=== PATIENT | male | born 1945 | race Hispanic/Latino ===

== ENCOUNTER → 2020-10-16 | Outpatient (CLI) | payer OTHER | END | disposition home or self-care (01) | LOC: RAH 13:16 | PROVIDERS: ATTEND Family Medicine | DX: N64.4 Mastodynia (principal) | CPT/HCPCS: 76641 ==

== ENCOUNTER 2020-12-23 09:33 | Day surgery (SDC) | payer OTHER ==
[2020-12-17 14:39] LABS: HEMATOCRIT 36.3 % (42-54); LYMPHOCYTES % (AUTO) 28.3 % (21.0-51.0); MEAN CORPUSCULAR HEMOGLOBIN 30.4 pg (27.0-33.0); MEAN CORPUSCULAR HGB CONC 32.8 g/dL (32.0-36.0); MEAN CORPUSCULAR VOLUME 92.8 fL (79-99); MONOCYTES % (AUTO) 7.7 % (3.0-13.0); NEUTROPHILS % (AUTO) 54.5 % (40.0-77.0); PLATELET COUNT (AUTO) 187 K/uL (130-400); RED BLOOD CELL COUNT(AUTO) 3.91 MIL/uL (4.50-6.20); RED CELL DISTRIBUTION WIDTH 14.3 % (11.0-15.5); WHITE BLOOD COUNT (AUTO) 8.1 K/uL (4.8-10.8)
[2020-12-17 14:48] LABS: INR 1.01 (0.85-1.15)
[2020-12-17 14:50] LABS: PARTIAL THROMBOPLASTIN TIME 24.3 SEC (26.3-35.5)
[2020-12-17 15:17] LABS: ALBUMIN 3.8 g/dL (3.5-5.0); BILIRUBIN,TOTAL 0.4 mg/dL (0.2-1.0); CREATININE 6.7 mg/dL (0.5-1.5); POTASSIUM 4.2 mmol/L (3.5-5.1); TOTAL PROTEIN, SERUM 7.9 g/dL (6.0-8.3)
[2020-12-22 13:15] VITALS: BP 119/64
[~2020-12-23] VITALS: Ht 165.1 cm; Wt 75.3 kg
[~2020-12-23 09:33] MED LIST: CEFAZOLIN SODIUM 1 GM VIAL IVP ONE
== END 2020-12-23 11:30 | disposition home or self-care (01) ==
LOC: DAH 09:33
PROVIDERS: ATTEND Student in an Organized Health Care Education/Training Program
DX: E11.22 Type 2 diabetes mellitus with diabetic chronic kidney disease (principal); Z20.822 Contact with and (suspected) exposure to COVID-19; I13.11 Hypertensive heart and chronic kidney disease without heart failure, with stage 5 chronic kidney disease, or end stage renal disease; J44.9 Chronic obstructive pulmonary disease, unspecified; N18.6 End stage renal disease; Z53.8 Procedure and treatment not carried out for other reasons; Z99.2 Dependence on renal dialysis; Z98.890 Other specified postprocedural states; Z87.891 Personal history of nicotine dependence; Z79.899 Other long term (current) drug therapy
CPT/HCPCS: 36415 ×2; 71045; 80053; 82948; 84132; 85025; 85610; 85730; 86850 ×2; 86900 ×2; 86901 ×2; 87635; 93005; A4215; A4221; A4222; A4223; A4510; A4663; C9803

== ENCOUNTER 2021-01-11 06:41 | Day surgery (SDC) | payer OTHER ==
[2021-01-08 12:17] LABS: EOSINOPHILS % (AUTO) 9.4 % (0.0-8.0); HEMATOCRIT 36.9 % (42-54); LYMPHOCYTES % (AUTO) 23.1 % (21.0-51.0); MEAN CORPUSCULAR HEMOGLOBIN 30.5 pg (27.0-33.0); MEAN CORPUSCULAR HGB CONC 32.2 g/dL (32.0-36.0); MEAN CORPUSCULAR VOLUME 94.6 fL (79-99); MONOCYTES % (AUTO) 8.2 % (3.0-13.0); NEUTROPHILS % (AUTO) 57.3 % (40.0-77.0); PLATELET COUNT (AUTO) 202 K/uL (130-400); RED CELL DISTRIBUTION WIDTH 15.5 % (11.0-15.5); WHITE BLOOD COUNT (AUTO) 6.8 K/uL (4.8-10.8)
[2021-01-08 12:29] LABS: INR 1.01 (0.85-1.15)
[2021-01-08 12:30] LABS: PARTIAL THROMBOPLASTIN TIME 23.7 SEC (26.3-35.5)
[2021-01-08 12:33] LABS: ALBUMIN 3.8 g/dL (3.5-5.0); BILIRUBIN,TOTAL 0.6 mg/dL (0.2-1.0); CREATININE 4.3 mg/dL (0.5-1.5); POTASSIUM 4.7 mmol/L (3.5-5.1); TOTAL PROTEIN, SERUM 8.2 g/dL (6.0-8.3)
[2021-01-08 14:47] VITALS: BP 128/72
[~2021-01-11] VITALS: Ht 162.6 cm; Wt 75.7 kg
[2021-01-11] VITALS (14 sets, daily range): BP systolic 123–141; BP diastolic 57–81
[2021-01-11] MEDS ORDERED: 0.9% NACL 500ML IV.SOLN 500 ML IV ONE (07:14)
[2021-01-11] MEDS: CEFAZOLIN SODIUM 1 GM VIAL ONE ×2 (07:22→08:25)
[2021-01-11] MEDS ORDERED: MIDAZOLAM HCL 1 MG/ML 2ML VIAL ONE (07:28)
[2021-01-11] MEDS ORDERED: FENTANYL CITRATE PF 50 MCG/1 ML 2ML VIAL ONE (07:28)
[2021-01-11 08:22] LABS: POTASSIUM 5.2 mmol/L (3.5-5.1)
[2021-01-11 08:31] LABS: CREATININE 9.9 mg/dL (0.5-1.5)
[2021-01-11] MEDS ORDERED: CEFAZOLIN SODIUM 1 GM VIAL ONE ×2 (08:50→08:53)
[2021-01-11] MEDS ORDERED: HEPARIN 10,000 UNIT/10ML (1,000 UNIT/ML) VIAL ONE ×2 (09:03→09:05)
[2021-01-11] MEDS ORDERED: EPINEPHRINE PF 1MG AMP ONE (09:27)
[2021-01-11] MEDS ORDERED: EPHEDRINE SULFATE 50 MG/ML AMPULE ONE (09:28)
[2021-01-11] MEDS ORDERED: PROPOFOL 10 MG/ML 20ML VIAL IV ONE (09:39)
== END 2021-01-11 11:30 | disposition home or self-care (01) ==
LOC: DAH 06:41
PROVIDERS: ATTEND Student in an Organized Health Care Education/Training Program
DX: N18.6 End stage renal disease (principal); Z20.822 Contact with and (suspected) exposure to COVID-19; E11.22 Type 2 diabetes mellitus with diabetic chronic kidney disease; I13.11 Hypertensive heart and chronic kidney disease without heart failure, with stage 5 chronic kidney disease, or end stage renal disease; I25.10 Atherosclerotic heart disease of native coronary artery without angina pectoris; J44.9 Chronic obstructive pulmonary disease, unspecified; I48.20 Chronic atrial fibrillation, unspecified; Z79.4 Long term (current) use of insulin; Z79.01 Long term (current) use of anticoagulants; Z87.891 Personal history of nicotine dependence; Z79.899 Other long term (current) drug therapy; Z98.890 Other specified postprocedural states; Z99.2 Dependence on renal dialysis
CPT/HCPCS: 36415 ×2; 36830; 71045; 80048; 80053; 82948 ×2; 85025; 85610; 85730; 86850 ×2; 86900 ×2; 86901 ×2; 87635; 93005; A4215; A4221; A4222; A4223; A4649; A4663; A6207; A6260; C9803; G0168; J0171; J0690 ×3; J1644 ×3; J2250; J2704; J3010; J3490; J7040

== ENCOUNTER → 2021-03-23 | Outpatient (CLI) | payer OTHER | END | disposition home or self-care (01) | LOC: SHCH 10:57 | PROVIDERS: ATTEND Internal Medicine Cardiovascular Disease | DX: I08.1 Rheumatic disorders of both mitral and tricuspid valves (principal); I10 Essential (primary) hypertension; E78.5 Hyperlipidemia, unspecified | CPT/HCPCS: 93306; 93356 ==

== ENCOUNTER 2021-07-12 22:56 | Observation (INO) | payer OTHER ==
[~2021-07-12] VITALS: Ht 162.6 cm; Wt 60.8 kg
[2021-07-12 23:26] LABS: BASOPHILS % (AUTO) 1.2 % (0.0-5.0); EOSINOPHILS % (AUTO) 9.8 % (0.0-8.0); HEMATOCRIT 31.3 % (42-54); LYMPHOCYTES % (AUTO) 30.2 % (21.0-51.0); MEAN CORPUSCULAR HEMOGLOBIN 30.7 pg (27.0-33.0); MEAN CORPUSCULAR HGB CONC 31.6 g/dL (32.0-36.0); MEAN CORPUSCULAR VOLUME 96.9 fL (79-99); MONOCYTES % (AUTO) 9.7 % (3.0-13.0); NEUTROPHILS % (AUTO) 48.7 % (40.0-77.0); PLATELET COUNT (AUTO) 164 K/uL (130-400); RED BLOOD CELL COUNT(AUTO) 3.23 MIL/uL (4.50-6.20); RED CELL DISTRIBUTION WIDTH 13.4 % (11.0-15.5); WHITE BLOOD COUNT (AUTO) 6.9 K/uL (4.8-10.8)
[2021-07-12 23:33] LABS: POTASSIUM 3.7 mmol/L (3.5-5.1)
[2021-07-12 23:52] LABS: CREATININE 5.3 mg/dL (0.5-1.5)
[2021-07-12 23:57] LABS: ALBUMIN 4.1 g/dL (3.5-5.0); BILIRUBIN,TOTAL 0.6 mg/dL (0.2-1.0); TOTAL PROTEIN, SERUM 7.3 g/dL (6.0-8.3)
[2021-07-13] MEDS ORDERED: ONDANSETRON 4MG INJ IVP ONE (03:30)
[2021-07-13] MEDS ORDERED: ASPIRIN 325MG TAB PO ONE (03:30)
[2021-07-13] MEDS ORDERED: CEFTRIAXONE 1G VIAL IVP ONE (07:00)
[2021-07-13] MEDS: AZITHROMYCIN 500MG+NS 250ML IVPB SCH (07:03)
[2021-07-13] MEDS ORDERED: VANCOMYCIN PROTOCOL PER PHARMACY IV SCH (07:30)
[2021-07-13] MEDS: INSULIN HUMULIN R 100 UNIT/ML 3ML SQ SCH ×4 (07:30→20:08)
[2021-07-13] MEDS ORDERED: GLUCAGON 1MG KIT 1 MG ML IM PRN (07:30)
[2021-07-13] MEDS ORDERED: ONDANSETRON 4MG INJ IVP PRN (07:30)
[2021-07-13] MEDS ORDERED: DEXTROSE 50%-WATER 50 ML DISP.SYRIN IV PRN (07:30)
[2021-07-13 08:04] LABS: BASOPHILS % (AUTO) 1.3 % (0.0-5.0); EOSINOPHILS % (AUTO) 10.2 % (0.0-8.0); HEMATOCRIT 29.2 % (42-54); LYMPHOCYTES % (AUTO) 26.3 % (21.0-51.0); MEAN CORPUSCULAR HGB CONC 33.2 g/dL (32.0-36.0); MEAN CORPUSCULAR VOLUME 96.4 fL (79-99); MONOCYTES % (AUTO) 9.9 % (3.0-13.0); PLATELET COUNT (AUTO) 169 K/uL (130-400); RED BLOOD CELL COUNT(AUTO) 3.03 MIL/uL (4.50-6.20); RED CELL DISTRIBUTION WIDTH 13.6 % (11.0-15.5); WHITE BLOOD COUNT (AUTO) 6.1 K/uL (4.8-10.8)
[2021-07-13 08:20] LABS: ALBUMIN 3.6 g/dL (3.5-5.0); CREATININE 5.3 mg/dL (0.5-1.5); PHOSPHORUS 5.6 mg/dL (2.5-4.9); POTASSIUM 3.9 mmol/L (3.5-5.1)
[2021-07-13 08:22] LABS: BILIRUBIN,TOTAL 0.6 mg/dL (0.2-1.0); MAGNESIUM 2.7 mg/dL (1.80-2.40); TOTAL PROTEIN, SERUM 7.2 g/dL (6.0-8.3)
[2021-07-13 08:34] LABS: HEMOGLOBIN A1C 6.7 % (4.0-6.0)
[2021-07-13] MEDS ORDERED: 0.9% NACL 250ML 250 ML ONE (09:51)
[2021-07-13] MEDS: VANCOMYCIN 1G/250ML KIT 250 ML IV SCH (10:00)
[2021-07-13] MEDS ORDERED: BACL10TA PO (10:16)
[2021-07-13] MEDS ORDERED: METO50TA18 PO (10:16)
[2021-07-13] MEDS ORDERED: ROSU10TA28 PO (10:16)
[2021-07-13] MEDS ORDERED: GLIP10TA9 PO (10:16)
[2021-07-13] MEDS ORDERED: APIX2.5T PO (10:16)
[2021-07-13] MEDS ORDERED: DOXA2TAB2 PO (10:21)
[2021-07-13] MEDS ORDERED: CHLO25TA23 PO (10:21)
[2021-07-13 10:44] VITALS: BP 163/73
[2021-07-13] MEDS ORDERED: INSLAN SQ (11:00)
[2021-07-13] MEDS: CEFEPIME HCL 1 GM VIAL IVP SCH (12:30)
[2021-07-13 14:55] VITALS: BP 157/66
[2021-07-13 16:05] VITALS: BP 147/48
[2021-07-13] MEDS: APIXABAN 2.5 MG TABLET PO SCH (20:07)
[2021-07-13] MEDS: METOPROLOL TARTRATE 50 MG TAB PO SCH (20:07)
[2021-07-13 20:20] VITALS: BP 144/49
[2021-07-14] VITALS (20 sets, daily range): BP systolic 120–208; BP diastolic 57–86
[2021-07-14] MEDS: INSULIN HUMULIN R 100 UNIT/ML 3ML SQ SCH ×4 (05:14→20:39)
[2021-07-14] MEDS: AZITHROMYCIN 500MG+NS 250ML IVPB SCH (05:14)
[2021-07-14] MEDS: METOPROLOL TARTRATE 50 MG TAB PO SCH ×2 (08:57→21:18)
[2021-07-14] MEDS: GLIPIZIDE 5 MG TABLET PO SCH (08:57)
[2021-07-14] MEDS: Vitamin B Complex/Vit C/Folic Acid PO SCH (08:57)
[2021-07-14] MEDS: CALCIUM AC 667MG CAP PO SCH ×3 (08:57→16:56)
[2021-07-14] MEDS: ATORVASTATIN 20 MG TABLET PO SCH (08:57)
[2021-07-14] MEDS: DOXAZOSIN MESYLATE 2 MG TABLET PO SCH (08:57)
[2021-07-14] MEDS: APIXABAN 2.5 MG TABLET PO SCH ×2 (08:57→21:17)
[2021-07-14] MEDS: BACLOFEN 10 MG TABLET PO SCH (08:58)
[2021-07-14] MEDS: INSULIN GLARGINE 100 UNITS/ML 10 ML VIAL SQ SCH (09:04)
[2021-07-14] MEDS ORDERED: MORPHINE 2 MG SYG IVP PRN (11:00)
[2021-07-14] MEDS: ACETAMINOPHEN 325 MG TAB PO PRN ×2 (13:56→21:19)
[2021-07-14] MEDS: CEFEPIME HCL 1 GM VIAL IVP SCH (13:58)
[2021-07-14 18:34] LABS: HEPATITIS B SURFACE ANTIGEN Non-Reactive (Negative)
[2021-07-14] MEDS ORDERED: EPOETIN ALFA-EPBX (ESRD) 10,000 UNIT/ML VIAL SQ SCH (21:00)
[2021-07-15] VITALS: BP 126/53
[2021-07-15] MEDS: AZITHROMYCIN 500MG+NS 250ML IVPB SCH (03:35)
[2021-07-15 04:00] VITALS: BP 140/48
[2021-07-15] MEDS: INSULIN HUMULIN R 100 UNIT/ML 3ML SQ SCH ×4 (05:22→21:14)
[2021-07-15 07:30] VITALS: BP 106/67
[2021-07-15] MEDS: INSULIN GLARGINE 100 UNITS/ML 10 ML VIAL SQ SCH (08:00)
[2021-07-15] MEDS: Vitamin B Complex/Vit C/Folic Acid PO SCH (09:00)
[2021-07-15 11:00] VITALS: BP 149/67
[2021-07-15] MEDS: CEFEPIME HCL 1 GM VIAL IVP SCH (12:33)
[2021-07-15] MEDS: CALCIUM AC 667MG CAP PO SCH ×3 (12:33→16:55)
[2021-07-15] MEDS: DOXAZOSIN MESYLATE 2 MG TABLET PO SCH (12:34)
[2021-07-15] MEDS: ATORVASTATIN 20 MG TABLET PO SCH (12:34)
[2021-07-15] MEDS: APIXABAN 2.5 MG TABLET PO SCH ×2 (12:34→21:13)
[2021-07-15] MEDS: VANCOMYCIN 1G/250ML KIT 250 ML IV SCH (12:35)
[2021-07-15] MEDS: BACLOFEN 10 MG TABLET PO SCH (12:35)
[2021-07-15] MEDS: GLIPIZIDE 5 MG TABLET PO SCH (12:35)
[2021-07-15 14:18] LABS: CREATININE 5.5 mg/dL (0.5-1.5); MAGNESIUM 2.4 mg/dL (1.80-2.40); POTASSIUM 3.9 mmol/L (3.5-5.1)
[2021-07-15 16:00] VITALS: BP 198/89
[2021-07-15] MEDS ORDERED: METOPROLOL TARTRATE 25 MG TAB PO ONE (17:45)
[2021-07-15 20:00] VITALS: BP 154/40
[2021-07-15] MEDS: METOPROLOL TARTRATE 25 MG TAB PO SCH (21:13)
[2021-07-16] VITALS (20 sets, daily range): BP systolic 125–165; BP diastolic 48–74
[2021-07-16 03:56] LABS: HEMATOCRIT 29.4 % (42-54); MEAN CORPUSCULAR HGB CONC 32.3 g/dL (32.0-36.0); MEAN CORPUSCULAR VOLUME 96.1 fL (79-99); RED BLOOD CELL COUNT(AUTO) 3.06 MIL/uL (4.50-6.20); RED CELL DISTRIBUTION WIDTH 13.9 % (11.0-15.5); WHITE BLOOD COUNT (AUTO) 6.9 K/uL (4.8-10.8)
[2021-07-16 04:11] LABS: CREATININE 6.2 mg/dL (0.5-1.5); MAGNESIUM 2.6 mg/dL (1.80-2.40); POTASSIUM 3.7 mmol/L (3.5-5.1)
[2021-07-16] MEDS: AZITHROMYCIN 500MG+NS 250ML IVPB SCH (06:12)
[2021-07-16] MEDS: INSULIN HUMULIN R 100 UNIT/ML 3ML SQ SCH ×3 (06:39→18:19)
[2021-07-16] MEDS: CALCIUM AC 667MG CAP PO SCH ×3 (08:00→18:16)
[2021-07-16] MEDS: INSULIN GLARGINE 100 UNITS/ML 10 ML VIAL SQ SCH (12:31)
[2021-07-16] MEDS: CEFEPIME HCL 1 GM VIAL IVP SCH (14:33)
[2021-07-16] MEDS: BACLOFEN 10 MG TABLET PO SCH (14:33)
[2021-07-16] MEDS: METOPROLOL TARTRATE 25 MG TAB PO SCH (14:34)
[2021-07-16] MEDS: ATORVASTATIN 20 MG TABLET PO SCH (14:34)
[2021-07-16] MEDS: APIXABAN 2.5 MG TABLET PO SCH (14:34)
[2021-07-16] MEDS: Vitamin B Complex/Vit C/Folic Acid PO SCH (14:35)
[2021-07-16] MEDS: GLIPIZIDE 5 MG TABLET PO SCH (14:35)
[2021-07-16] MEDS: DOXAZOSIN MESYLATE 2 MG TABLET PO SCH (14:35)
[2021-07-16] MEDS ORDERED: METO25 PO ×3 (16:59→17:12)
== END 2021-07-16 19:10 | disposition home or self-care (01) ==
LOC: EDH 22:56 → INTOOBSV 07-13 06:49 → EDHIP 07-13 06:49 → 3DH 07-13 16:15
PROVIDERS: ADMIT Internal Medicine Infectious Disease; ATTEND Internal Medicine Infectious Disease
DX: K80.20 Calculus of gallbladder without cholecystitis without obstruction (principal); Z20.822 Contact with and (suspected) exposure to COVID-19; R06.02 Shortness of breath; I12.0 Hypertensive chronic kidney disease with stage 5 chronic kidney disease or end stage renal disease; E11.22 Type 2 diabetes mellitus with diabetic chronic kidney disease; N18.6 End stage renal disease; D63.1 Anemia in chronic kidney disease; E66.9 Obesity, unspecified; E78.5 Hyperlipidemia, unspecified; J44.9 Chronic obstructive pulmonary disease, unspecified; E78.00 Pure hypercholesterolemia, unspecified; J18.9 Pneumonia, unspecified organism; E83.39 Other disorders of phosphorus metabolism; I48.19 Other persistent atrial fibrillation; D68.59 Other primary thrombophilia; I25.10 Atherosclerotic heart disease of native coronary artery without angina pectoris; I51.7 Cardiomegaly; Z79.01 Long term (current) use of anticoagulants; Z79.84 Long term (current) use of oral hypoglycemic drugs; Z79.899 Other long term (current) drug therapy; Z95.1 Presence of aortocoronary bypass graft; Z87.891 Personal history of nicotine dependence; Z95.2 Presence of prosthetic heart valve; Z99.2 Dependence on renal dialysis
CPT/HCPCS: 36415 ×5; 71045; 71250; 74176; 74181; 78226; 80048 ×2; 80053 ×2; 82948 ×15; 83036; 83735 ×3; 83880; 84100; 84484 ×2; 85025 ×2; 85027; 86704; 86706; 87340; 87635; 87804 ×2; 93005 ×2; 96365; 96366 ×2; 96367; 96372 ×3; 96375 ×2; 96376 ×3; 99285; A9537; C9803; G0378 ×3; J0456; J0692 ×4; J0696; J1815 ×2; J2405; J3370 ×2; J7050; J7070; 90935

== ENCOUNTER → 2021-10-07 | Outpatient (CLI) | payer OTHER ==
[~2021-10-07] MED LIST changes: +APIX2.5T PO; +BACL10TA PO; -CEFAZOLIN SODIUM 1 GM VIAL IVP ONE; +CHLO25TA23 PO; +DOXA2TAB2 PO; +GLIP10TA9 PO; +INSLAN SQ; +METO25 PO; +ROSU10TA28 PO
== END | disposition home or self-care (01) ==
LOC: RAH 07:34
PROVIDERS: ATTEND Internal Medicine Gastroenterology
DX: R11.2 Nausea with vomiting, unspecified (principal)
CPT/HCPCS: 78264; A9541

== ENCOUNTER → 2023-08-01 | Outpatient (CLI) | payer OTHER ==
[~2023-08-01] MED LIST changes: -CHLO25TA23 PO; +CHLO25TA68 PO
[2023-08-01 12:24] LABS: ALBUMIN 4.2 g/dL (3.5-5.0); BILIRUBIN,TOTAL 1.1 mg/dL (0.2-1.0); CREATININE 5.8 mg/dL (0.5-1.5); POTASSIUM 4.9 mmol/L (3.5-5.1); TOTAL PROTEIN, SERUM 7.6 g/dL (6.0-8.3)
== END | disposition home or self-care (01) ==
LOC: LAB 08:39
PROVIDERS: ATTEND Internal Medicine Cardiovascular Disease
DX: I11.0 Hypertensive heart disease with heart failure (principal); I50.32 Chronic diastolic (congestive) heart failure
CPT/HCPCS: 36415; 80053; 80061

== ENCOUNTER 2023-09-13 21:16 | Observation (INO) | payer OTHER ==
[~2023-09-13] VITALS: Ht 162.6 cm; Wt 79.5 kg
[2023-09-13] MEDS: NITROGLYCERIN 1GM OINT 1 INCH/1GM TD ONE (23:24)
[2023-09-13 23:56] LABS: BASOPHILS # (AUTO) 0.01 K/uL (0.00-0.20); BASOPHILS % (AUTO) 0.1 % (0.0-5.0); EOSINOPHILS # (AUTO) 0.01 K/uL (0.00-0.70); EOSINOPHILS % (AUTO) 0.1 % (0.0-8.0); HEMATOCRIT 31.4 % (42-54); IMMATURE GRANULOCYTE ABSOLUTE 0.06 K/uL (0-1); LYMPHOCYTES # (AUTO) 1.1 K/uL (1.0-4.8); LYMPHOCYTES % (AUTO) 8.9 % (21.0-51.0); MEAN CORPUSCULAR HEMOGLOBIN 31.3 pg (27.0-33.0); MEAN CORPUSCULAR HGB CONC 32.8 g/dL (32.0-36.0); MEAN CORPUSCULAR VOLUME 95.4 fL (79-99); MONOCYTES # (AUTO) 0.9 K/uL (0.1-1.0); MONOCYTES % (AUTO) 7.1 % (3.0-13.0); NEUTROPHILS # (AUTO) 10.6 K/uL (1.8-7.7); NEUTROPHILS % (AUTO) 83.3 % (40.0-77.0); PLATELET COUNT (AUTO) 166 K/uL (130-400); RED BLOOD CELL COUNT(AUTO) 3.29 MIL/uL (4.50-6.20); RED CELL DISTRIBUTION WIDTH 14.2 % (11.0-15.5); WHITE BLOOD COUNT (AUTO) 12.7 K/uL (4.8-10.8)
[2023-09-14] VITALS (19 sets, daily range): BP systolic 121–205; BP diastolic 52–107; PULSE 83–105; RESP 18–20; TEMP 97.8–98; O2SAT 98
[2023-09-14 00:16] LABS: ADD UA MICROSCOPIC YES; APPEARANCE,URINE CLEAR (CLEAR); BILIRUBIN,URINE NEGATIVE (NEGATIVE); COLOR,URINE LIGHT-YELLOW (YELLOW); GLUCOSE, URINE (UA) >=1000 mg/dL (NEGATIVE); KETONES,URINE NEGATIVE (NEGATIVE); LEUKOCYTE ESTERASE ,URINE NEGATIVE Leu/uL (NEGATIVE); NITRATE,URINE NEGATIVE (NEGATIVE); OCCULT BLOOD,URINE SMALL (NEGATIVE); PROTEIN,URINE 600 mg/dL (NEGATIVE); UROBILINOGEN,URINE 0.2 mg/dL (0.2-1.0)
[2023-09-14 00:17] LABS: BACTERIA,URINE RARE /HPF (None Seen); MUCUS,URINE RARE LPF (None Seen); RBC,URINE 0-1 /HPF (0-1); SQUAMOUS EPITHELIAL CELL,UR RARE /HPF (0-2)
[2023-09-14 00:18] LABS: CREATININE 7.1 mg/dL (0.5-1.3); MAGNESIUM 2.6 mg/dL (1.80-2.40); POTASSIUM 4.5 mmol/L (3.5-5.1); THYROID STIMULATING HORMONE 0.64 uIU/mL (0.36-3.74)
[2023-09-14] MEDS ORDERED: ONDANSETRON 4MG INJ IVP PRN (01:30)
[2023-09-14] MEDS ORDERED: ACETAMINOPHEN 650 MG SUPPOSITORY RC PRN (01:30)
[2023-09-14] MEDS ORDERED: ALBUTEROL 0.083% 2.5 MG/3 ML INH IH PRN (01:30)
[2023-09-14] MEDS ORDERED: TEMAZEPAM 15 MG CAPSULE PO PRN (01:30)
[2023-09-14] MEDS ORDERED: LACTULOSE 20 GM/30 ML UDCUP PO PRN (01:30)
[2023-09-14] MEDS ORDERED: IPRATROPIUM 0.5 MG/2.5 ML INH IH PRN (01:30)
[2023-09-14] MEDS ORDERED: DOCUSATE SODIUM 100 MG CAP PO PRN (01:30)
[2023-09-14] MEDS ORDERED: ACETAMINOPHEN 325 MG TAB PO PRN (01:30)
[2023-09-14] MEDS: ATORVASTATIN 40 MG TABLET PO SCH (01:53)
[2023-09-14] MEDS: ASPIRIN 81MG CHEW TAB PO ONE (01:54)
[2023-09-14] MEDS: HEPARIN 5,000 UNIT VIAL SQ SCH (02:43)
[2023-09-14 06:21] LABS: THYROID STIMULATING HORMONE 0.69 uIU/mL (0.36-3.74)
[2023-09-14] MEDS: INSULIN HUMULIN R 100 UNIT/ML 3ML SQ SCH (11:30)
[2023-09-14] MEDS: ASPIRIN 81MG CHEW TAB PO SCH (12:32)
[2023-09-14] MEDS: PANTOPRAZOLE 40 MG TAB DR PO SCH (12:32)
[2023-09-14 13:44] LABS: COVID19 (SARS ANTIGEN RAPID) PRESUMPTIVE NEGATIVE (NEGATIVE); INFLUENZA TYPE A Negative For Type A (NEGATIVE); INFLUENZA TYPE B Negative For Type B (NEGATIVE)
[2023-09-14] MEDS: HYDRALAZINE 25MG TABLET PO SCH (14:41)
[2023-09-14] MEDS: HYDRALAZINE 20MG/ML VIAL IV PRN (14:41)
[2023-09-14] MEDS ORDERED: CALC667T6 PO (17:52)
[2023-09-14] MEDS: METOPROLOL TARTRATE 25 MG TAB PO SCH (20:41)
[2023-09-14] MEDS: APIXABAN 2.5 MG TABLET PO SCH (20:42)
[2023-09-15] VITALS (7 sets, daily range): BP systolic 137–148; BP diastolic 63–83; PULSE 69–95; RESP 17–19; TEMP 97.7–98; O2SAT 97
[2023-09-15 04:24] LABS: HEMATOCRIT 32.7 % (42-54); MEAN CORPUSCULAR HEMOGLOBIN 30.9 pg (27.0-33.0); MEAN CORPUSCULAR VOLUME 93.7 fL (79-99); RED BLOOD CELL COUNT(AUTO) 3.49 MIL/uL (4.50-6.20); RED CELL DISTRIBUTION WIDTH 14.6 % (11.0-15.5); WHITE BLOOD COUNT (AUTO) 11.6 K/uL (4.8-10.8)
[2023-09-15 05:00] LABS: CREATININE 5.2 mg/dL (0.5-1.3); MAGNESIUM 2.2 mg/dL (1.80-2.40); PHOSPHORUS 5.1 mg/dL (2.5-4.9); POTASSIUM 3.6 mmol/L (3.5-5.1)
[2023-09-15] MEDS: INSULIN GLARGINE 100 UNITS/ML 10 ML VIAL SQ SCH (08:00)
[2023-09-15] MEDS ORDERED: NON-FORMULARY MEDICATION 1 EACH (Rosuvastatin Calcium 10 MG) PO SCH (09:00)
[2023-09-15] MEDS: BACLOFEN 10 MG TABLET PO SCH (09:29)
[2023-09-15] MEDS: DOXAZOSIN MESYLATE 2 MG TABLET PO SCH (09:29)
[2023-09-15 12:12] LABS: HEPATITIS Bs ANTIGEN SCREEN P Negative (Negative)
[2023-09-15] MEDS ORDERED: HYDR25 PO (13:15)
[2023-09-15] MEDS ORDERED: ATOR40TA69 PO (13:15)
== END 2023-09-15 15:10 | disposition home or self-care (01) ==
LOC: EDH 21:16 → EDHIP 21:17 → 4DH 09-14 14:54
PROVIDERS: ADMIT Internal Medicine Critical Care Medicine; ATTEND Internal Medicine Critical Care Medicine
DX: R20.2 Paresthesia of skin (principal); Z20.822 Contact with and (suspected) exposure to COVID-19; I16.1 Hypertensive emergency; E11.65 Type 2 diabetes mellitus with hyperglycemia; I12.0 Hypertensive chronic kidney disease with stage 5 chronic kidney disease or end stage renal disease; E11.22 Type 2 diabetes mellitus with diabetic chronic kidney disease; N18.6 End stage renal disease; D63.1 Anemia in chronic kidney disease; G45.9 Transient cerebral ischemic attack, unspecified; E78.5 Hyperlipidemia, unspecified; I48.91 Unspecified atrial fibrillation; E66.9 Obesity, unspecified; D72.829 Elevated white blood cell count, unspecified; E78.00 Pure hypercholesterolemia, unspecified; I20.9 Angina pectoris, unspecified; J81.0 Acute pulmonary edema; N25.81 Secondary hyperparathyroidism of renal origin; Z99.2 Dependence on renal dialysis; Z95.1 Presence of aortocoronary bypass graft; Z86.73 Personal history of transient ischemic attack (TIA), and cerebral infarction without residual deficits; Z79.899 Other long term (current) drug therapy
CPT/HCPCS: 99285; 84443 ×2; 82550 ×3; 83735 ×2; 84484 ×4; 80048 ×2; 85025; 81001; 36415 ×3; 70450; 93005 ×2; 96374; 96372 ×2; 83721; 87804 ×2; 82948 ×6; 86706; 87340; 86704; 87426; 71045; 93306; 93356; 76376; 90935 ×2; 84100; 85027; 84145; G0378 ×34; J0360; J1644; J1815; G0257

== ENCOUNTER → 2023-11-23 | Outpatient (CLI) | payer OTHER ==
[~2023-11-23] MED LIST changes: +ATOR40TA69 PO; +CALC667T6 PO; +HYDR25 PO; -ROSU10TA28 PO; +ROSU10TA72 PO
== END | disposition home or self-care (01) ==
LOC: RAH 13:54
PROVIDERS: ATTEND Family Medicine
DX: K80.20 Calculus of gallbladder without cholecystitis without obstruction (principal); K57.30 Diverticulosis of large intestine without perforation or abscess without bleeding; R16.0 Hepatomegaly, not elsewhere classified; I25.10 Atherosclerotic heart disease of native coronary artery without angina pectoris; M47.815 Spondylosis without myelopathy or radiculopathy, thoracolumbar region; I51.7 Cardiomegaly; R10.13 Epigastric pain
CPT/HCPCS: 74150